=== PATIENT | female | born 1960 | race Caucasian/White ===

== ENCOUNTER → 2017-02-26 | Outpatient (CLI) | payer OTHER ==
--- NOTE | 2017-02-26 11:09 | PCVCIMAG ---
APPROVED REPORT Study performed: 02/26/2017 10:18:42 EXAM: Comprehensive 2D, Doppler, and color-flow Echocardiogram Patient Location: Echo lab Status: routine BSA: 1.82 HR: 64 bpmBP: 128/78 mmHg Rhythm: NSR Other Information Study Quality: Fair Risk Factors: Cardiac Risk Factors: HTN,hx diastolic dysfunction, chf Indications Congestive Heart Failure Hypertension/HDD sleep apnea 2D Dimensions LVEF(%): 57.72 (>50%) IVSd: 9.16 (7-11mm)LVOT Diam: 21.50 (18-24mm) LVDd: 46.19 mm PWd: 8.27 (7-11mm)Ascending Ao: 31.12 (22-36mm) LVDs: 32.19 (25-40mm) Left Atrium: 40.19 (27-40mm) Aortic Root: 23.33 mm LV Single Plane 4CH: 57.59 % LV Single Plane 2CH: 57.25 %Olivas's LVEF: 57.42 % Biplane EF: 55.0 % Volumes Left Atrial Volume (Systole) Single Plane 4CH: 26.39 mLSingle Plane 2CH: 23.26 mL Biplane LA Volume: 28.00 mLLA ESV Index: 16.00 mL/m2 Aortic Valve AoV Peak Kaiser.: 1.88 m/s AO Peak Gr.: 14.52 mmHgLVOT Max P.53 mmHg AO Mean Gr.: 7.22 mmHgLVOT Mean P.17 mmHg AO V2 Mean: 1.26 m/sLVOT Max V: 0.54 m/s AO V2 VTI: 37.98 cm ARIANA (VTI): 1.04 [id number] V1 VTI: 10.87 cm ARIANA Vmax: 1.05 cm2 Mitral Valve E/A Ratio: 1.3 MV Decel. Time: 134.24 ms MV E Max Kaiser.: 0.83 m/s MV A Kaiser.: 0.66 m/s MV PHT: 38.93 ms IVRT: 100.35 ms TDI E/Lateral E': 9.22E/Medial E': 16.60 Medial E' Kaiser.: 0.05 m/s Lateral E' Kaiser.: 0.09 m/s Pulmonary Valve PV Peak Gr.: 7.28 mmHg Pulmonary Vein P Vein S: 0.64 m/sP Vein A: 0.28 m/s P Vein D: 0.45 m/sP Vein A Dur.: 114.2 msec P Vein S/D Ratio: 1.42 Tricuspid Valve TR Peak Kaiser.: 2.29 m/s TR Peak Gr.: 20.98 mmHg TV Vmax: 0.68 m/sPA Pressure: 28.00 mmHg Left Ventricle The left ventricle is normal size. There is normal LV segmental wall motion. There is normal left ventricular wall thickness. Left ventricular systolic function is normal. The left ventricular ejection fraction is within the normal range. LVEF is 55-60%. Grade II diastolic dysfunction Right Ventricle The right ventricle is normal size. The right ventricular systolic function is normal. Atria The left atrium size is normal. The right atrium size is normal. Aortic Valve The aortic valve is normal in structure. No aortic regurgitation is present. There is no aortic valvular stenosis. Mitral Valve The mitral valve is normal in structure. There is no mitral valve regurgitation noted. No evidence of mitral valve stenosis. Tricuspid Valve The tricuspid valve is normal in structure. Trace tricuspid regurgitation. Pulmonic Valve The pulmonary valve is normal in structure. There is no pulmonic valvular regurgitation. Great Vessels The aortic root is normal in size. The ascending aorta is normal in size. IVC is normal in size and collapses with >50% inspiration Pericardium There is no pericardial effusion. There is no pleural effusion. <Conclusion> Left ventricular systolic function is normal. There is normal LV segmental wall motion. LVEF is 55-60%. Grade II diastolic dysfunction The aortic valve is normal in structure. No aortic regurgitation or stenosis The mitral valve is normal in structure. There is no mitral valve regurgitation noted. Pulmonary artery pressure could not be relaibly ascertained There is no pericardial effusion.
== END | disposition home or self-care (01) ==
LOC: PCVCIMAG 09:57
PROVIDERS: ATTEND Internal Medicine
DX: I07.1 Rheumatic tricuspid insufficiency (principal); I44.7 Left bundle-branch block, unspecified; I11.0 Hypertensive heart disease with heart failure; I50.32 Chronic diastolic (congestive) heart failure; E78.5 Hyperlipidemia, unspecified; L40.50 Arthropathic psoriasis, unspecified; G47.33 Obstructive sleep apnea (adult) (pediatric); Z90.710 Acquired absence of both cervix and uterus; Z79.899 Other long term (current) drug therapy; Z88.8 Allergy status to other drugs, medicaments and biological substances
CPT/HCPCS: 80061; 93005; 93306; G0463

== ENCOUNTER → 2018-11-19 | Outpatient (CLI) | payer OTHER ==
--- NOTE | 2018-11-19 10:09 | PCVCIMAG ---
APPROVED REPORT Study performed: 11/19/2018 09:05:54 EXAM: Comprehensive 2D, Doppler, and color-flow Echocardiogram Patient Location: Echo lab Room #: 2Status: routine BSA: 1.84 HR: 58 bpmBP: 138/90 mmHg Rhythm: Bradycardia Other Information Study Quality: Fair Risk Factors: Cardiac Risk Factors: Hyperlipidemia Indications Abnormal ECG LV Function:Diastolic Dyspnea LBBB, ARYA, INCREASED SOB WITH EXERTION X 1 MONTH, INCREASED HEADACHES, CHRONIC DIASTOLIC FAILURE 2D Dimensions IVSd: 7.49 (7-11mm)LVOT Diam: 21.06 (18-24mm) LVDd: 44.27 mm PWd: 9.39 (7-11mm)Ascending Ao: 29.18 (22-36mm) LVDs: 36.54 (25-40mm) Left Atrium: 34.92 (27-40mm) Aortic Root: 23.33 mm LV Single Plane 4CH: 37.30 % LV Single Plane 2CH: 45.10 % Biplane EF: 41.2 % Volumes Left Atrial Volume (Systole) Single Plane 4CH: 47.96 mLSingle Plane 2CH: 29.65 mL Biplane LA Volume: 40.00 mLLA ESV Index: 22.00 mL/m2 Aortic Valve AoV Peak Kaiser.: 1.62 m/s AO Peak Gr.: 10.56 mmHgLVOT Max P.00 mmHg LVOT Max V: 0.71 m/s ARIANA Vmax: 1.51 cm2 Mitral Valve E/A Ratio: 1.2 MV Decel. Time: 182.07 ms MV E Max Kaiser.: 0.78 m/s MV A Kaiser.: 0.66 m/s IVRT: 138.41 ms TDI E/Lateral E': 11.14E/Medial E': 11.14 Medial E' Kaiser.: 0.07 m/s Lateral E' Kaiser.: 0.07 m/s Pulmonary Valve PV Peak Kaiser.: 1.10 m/sPV Peak Gr.: 4.84 mmHg Tricuspid Valve TR Peak Kaiser.: 1.80 m/s TR Peak Gr.: 12.90 mmHg TV Vmax: 0.69 m/sPA Pressure: 20.00 mmHg Left Ventricle The left ventricle is normal size. Paradoxical septal motion consistent with conduction abnormality seen with a LBBB. There is normal left ventricular wall thickness. Left ventricular systolic function is mildly decreased. LVEF is 45-50%. Discordant septal motion, likely related to left bundle branch block Grade II - pseudonormal filling dynamics. Right Ventricle The right ventricle is normal size. The right ventricular systolic function is normal. Atria The left atrium size is normal. The right atrium size is normal. Aortic Valve The aortic valve is not well visualized but is probably tricuspid. No aortic regurgitation is present. There is no aortic valvular stenosis. Mitral Valve The mitral valve is normal in structure. Mild to moderate mitral regurgitation. No evidence of mitral valve stenosis. Tricuspid Valve The tricuspid valve is normal in structure. Trace tricuspid regurgitation with a PA pressure of 20 mmHg. No pulmonary hypertension. Pulmonic Valve The pulmonary valve is normal in structure. There is no pulmonic valvular regurgitation. Great Vessels The aortic root is normal in size. The ascending aorta is normal in size. Aortic arch is normal in caliber. IVC is normal in size and collapses >50% with inspiration. Pericardium There is no pericardial effusion. There is no pleural effusion. <Conclusion> Left ventricular systolic function is mildly decreased. LVEF is 45-50%. Discordant septal motion, likely related to left bundle branch block Grade II - pseudonormal filling dynamics. The aortic valve is not well visualized but is probably trileaflet. No aortic regurgitation or stenosis. The mitral valve is normal in structure. Mild to moderate mitral regurgitation. Trace tricuspid regurgitation with a pulmonary artery pressure of 20 mmHg. There is no pericardial effusion.
== END | disposition home or self-care (01) ==
LOC: PCVCIMAG 09:00
PROVIDERS: ATTEND Internal Medicine
DX: I34.0 Nonrheumatic mitral (valve) insufficiency (principal); R94.31 Abnormal electrocardiogram [ECG] [EKG]; R06.00 Dyspnea, unspecified; G47.33 Obstructive sleep apnea (adult) (pediatric); R51 Headache
CPT/HCPCS: 93306

== ENCOUNTER → 2018-12-03 | Outpatient (CLI) | payer OTHER ==
[~2018-12-03] MED LIST: REGADENOSON 0.4 MG/5 ML DISP.SYRIN. IV ONE
--- NOTE | 2018-12-03 16:44 | PCVCIMAG ---
APPROVED REPORT Imaging Protocol: Rest Tc-99m/Stress Tc-99m 1 day Study performed: 12/03/2018 10:11:56 Indication: Dyspnea, Chest pain Patient Location: Out-Patient Stress Nurse: Lisa Dhaliwal RN, Arabella Jasso RN VA Tech:Holley Erazo [facility] Ht: 5 ft 1 in Wt: 198 lbs BSA: 1.88 m2 HR: 71 bpm BP: 134/92 mmHg BMI: 37.4 Rhythm: Sinus Rhythm, Incomplete LBBB Medical History Medical History: Hyperlipidemia, HTN, CHF Medications: Lasix, Methotrexate, Oxycodone, Aldactone Allergies: Many, none relevant to this exam Cardiac Risk Factors: Age Pretest Chest Pain Characteristics: No chest pain Exercise History: Sedentary Physical Disabilities: Arthritis Resting Data Rest SPECT myocardial perfusion imaging was performed in supine position 45 minutes following the intravenous injection of 10.4 mCi of Tc-99m Sestamibi. Time of rest injection: 1000 Date: 12/03/2018 Administration Route: IV Administration Site: Right AC Pharmacologic Stress Pharmacologic stress test was performed by injecting Regadenoson 0.4 mg IV push over 10-15 seconds immediately followed by the intravenous injection of 33.4 mCi of Tc-99m Sestamibi. Time of stress injection: 1100 Date: 12/03/2018 Administration Route: IV Administration Site: Right AC Gated Stress SPECT was performed 45 minutes after stress injection. The images were gated to evaluate regional wall motion and calculate left ventricular ejection fraction. Stress Test Details Stress Test: Pharmacologic stress testing performed using 0.4 mg of regadenoson per 5 mL given IV over 10 seconds. Reason for pharmacologic stress test: arthritis and LBBB. HRMax Heart Rate (APMHR): 162 bpm Resting HR: 71 bpmTarget HR (85% APMHR): 137 bpm Max HR Achieved: 86 bpm % of APMHR: 53 Recovery HR: 73 bpm BP Resting BP: 134/92 mmHg Max BP: 148/77 mmHg Recovery BP: 155/84 mmHg ECG Resting ECG: Sinus Rhythm, LBBB Stress ECG: Sinus Rhythm, LBBB ST Change: Nondiagnostic V-pacing or LBBB Arrhythmia: PVC's, PAC's Recovery ECG: Sinus Rhythm, LBBB Recovery ST Change: Nondiagnostic V-pacing or LBBB Recovery Arrhythmia: None Clinical Reason for Termination: Completed protocol Stress Symptoms: Chest pressure Symptoms resolved with caffeine. Stress ECG Conclusion Clinical: Non-ischemic Non-diagnostic stress due to underlying left bundle branch block Study Quality Study: Good Study Data Post stress, the left ventricular ejection was 68%.. SSS: 1 SRS: 1 SDS: 0 TID = 1.16. Perfusion No evidence of stress induced ischemia or prior myocardial infarction. Wall Motion Normal left ventricular size and function with no regional wall motion abnormalities. Nuclear Conclusion No evidence of stress induced ischemia or prior myocardial infarction. Normal left ventricular size and function with no regional wall motion abnormalities. Post stress, the left ventricular ejection was 68%. No prior study available for comparison. Interpreted by: Regis Martinez MD Electronically Approved: 12/03/2018 14:11:58 <Conclusion> Clinical: Non-ischemic Non-diagnostic stress due to underlying left bundle branch block
== END | disposition home or self-care (01) ==
LOC: EDSTATUS 09:36 → PCVCIMAG 09:38
PROVIDERS: ATTEND Internal Medicine
DX: R06.00 Dyspnea, unspecified (principal); R07.9 Chest pain, unspecified
CPT/HCPCS: 78452; 93017; A9500; J2785